=== PATIENT | female | born 1995 | race Caucasian/White ===

== ENCOUNTER → 2017-01-31 | Outpatient (CLI) | payer BC | LOC: FIMAGING 13:58 | PROVIDERS: ATTEND Physician Assistant Medical | DX: R40.4 Transient alteration of awareness (principal); G93.0 Cerebral cysts; Z98.890 Other specified postprocedural states ==

== ENCOUNTER → 2017-02-05 | Outpatient (CLI) | payer BC ==
--- NOTE | 2017-02-05 15:21 | CPEEG ---
[f rep st] ELECTROENCEPHALOGRAM DATE OF STUDY: 02/05/2017 INTERPRETATION: Normal EEG during wakefulness and sleep. There were no potentially epileptogenic abnormalities present during the recording. REPORT: This EEG contains 10 hertz alpha activity to the posterior head regions. There was no abnormal activation at rest, during photic stimulation or hyperventilation. The patient became drowsy and fell asleep during the study. There was no abnormal activation during drowsiness, sleep, or during times of arousal. /[id number]/MODL MTDD
== END ==
LOC: FCPNEURO 12:32
PROVIDERS: ATTEND Physician Assistant Medical
DX: R40.4 Transient alteration of awareness (principal); G93.5 Compression of brain

== ENCOUNTER 2017-02-07 16:01 | Emergency (ER) | payer BC ==
[2017-02-07 16:13] VITALS: BP 109/53; PULSE 74; RESP 18; TEMP 99.4; O2SAT 96
--- NOTE | 2017-02-07 17:25 | UCPHY ---
H & P Time Seen by Provider: 02/07/17 16:57 Patient Type: Established HPI/ROS: This patient was struck in the head by a bronze sculptor the fell off bookcase her boyfriend removing. She reports a laceration the top of her head from this. She was not days from the episode. She does have a moderate headache that is improving with ibuprofen should prior to arrival. She reports mild bleeding that stopped with direct pressure. No other exacerbating or alleviating factors. Incident occurred shortly prior to arrival. ROS: No visual changes. HEENT: No other complaints. Pulmonary: No complaints neuro: No focal weakness. No confusion. Musculoskeletal: No midline neck pain or other injuries. GI: No nausea or vomiting. 7 point ROS is otherwise negative. Smoking Status: Never smoked Constitutional: Initial Vital Signs Temperature (C) 37.4 C 02/07/17 16:09 Heart Rate 74 02/07/17 16:09 Respiratory Rate 18 02/07/17 16:09 Blood Pressure 109/53 L 02/07/17 16:09 O2 Sat (%) 96 02/07/17 16:09 O2 Delivery Mode Room Air Allergies/Adverse Reactions: No Known Allergies Allergy (Unverified 02/07/17 16:13) Home Medications: Medication Instructions Recorded Erika Allergy 180 mg PO DAILY 05/28/16 BENADRYL 50 mg PO HS 05/28/16 Depakote 500 mg PO BID 05/28/16 Melatonin 10 mg PO HS 05/28/16 Multi Vitamin DAILY 05/28/16 Prozac 60 mg PO DAILY 05/28/16 busPIRone 20 mg PO BID 05/28/16 traZODONE 100 mg PO DAILY 05/28/16 Ibuprofen [Motrin (*)] 800 mg PO Q6 #15 tab 09/27/16 Senna-Docusate Sodium Tablet 02/07/17 MDM/Departure - MDM Procedures: The wound is 2 cm. The wound was copiously irrigated with saline. The wound was explored for foreign bodies and none were found. The wound was prepped and draped in the normal sterile fashion. The wound was anesthetized using 2% plain lidocaine followed by 1% plain lidocaine - 27 gauge needle, 2 mL with good effect. The edges were reapproximated using 4 0 Prolene, PC 3 needle, 4 running sutures with good hemostasis and cosmesis. The patient tolerated the procedure well. there were no complications. ED Course/Re-evaluation: Discussion: Scalp Lac with minor head injury without clinical evidence to suggest intracranial bleed, skull fracture other concerning complicating factors - Depart Disposition: Home, Routine, Self-Care Clinical Impression: Scalp laceration Qualifiers: Encounter type: initial encounter Qualified Code(s): S01.01XA - Laceration without foreign body of scalp, initial encounter Minor head injury without loss of consciousness Qualifiers: Encounter type: initial encounter Qualified Code(s): S09.90XA - Unspecified injury of head, initial encounter Condition: Good Instructions: Head Injury (ED), Staple Care (ED) Additional Instructions: Diagnosis: Scalp laceration 2. Minor head injury Plan: Tylenol and ibuprofen for pain as needed. Keep the wound clean and dry for the next 2 days. Then clean daily with warm soapy water Return for staple removal in 5-7 days. Go to the emergency department if he develops unbearable headache, vomiting more than twice or other concerns for worsening symptoms. Referrals: NONE *PRIMARY CARE P,. [Primary Care Provider] - As per Instructions - PQRS PQRS Measurement: NA
== END 2017-02-07 17:55 | disposition home or self-care (01) ==
LOC: CED 16:01
PROC: 0HQ0XZZ Repair Scalp Skin, External Approach (ICD-10-PCS; principal; 2017-02-07)
DX: S01.01XA Laceration without foreign body of scalp, initial encounter (principal); W20.8XXA Other cause of strike by thrown, projected or falling object, initial encounter; Y92.019 Unspecified place in single-family (private) house as the place of occurrence of the external cause; Y99.8 Other external cause status
CPT/HCPCS: G0463-PO